=== PATIENT | male | born 1945 | race Caucasian/White ===

== ENCOUNTER 2018-06-10 14:33 | Inpatient (IN) | payer MEDICARE, OTHER ==
[2018-06-10] MEDS ORDERED: Nicotine Inhaler* 10 MG AMP INH PRN (14:54)
--- NOTE | 2018-06-10 15:06 | ED ---
Psychiatric Complaint - HPI Summary HPI Summary: Pt is a 72 y/o male who presents to the ED c/o SI. For the past 2-3 days hes felt extremely anxious and delirious, and has SI. Pt states he wants to , but doesnt want to kill himself. He has current thoughts of self-harm but without a specific plan. However, as per ex-, there was an incident involving a knife this morning. He also c/o insomnia, diaphoresis, and lack of energy. Pt was admitted to [facility] for similar sx on 05/04/18 for 1 week, and has since been seeing outpatient therapy and psychiatry. He takes Zoloft, Klonopin, and Remeron. Ex- is concerned because his Remeron dosage was recently increased from 15 mg to 30 mg. Pt states he is taking his medications as prescribed. PMHx anxiety, depression, panic disorder, inpatient treatment, and suicide attempt. 10 years ago he received electroconvulsive therapy which helped his symptoms. He denies any hx of thyroid issues. He is tremorous in the room. Pt denies any drug or alcohol use. - History Of Current Complaint Chief Complaint: [facility] Time Seen by Provider: 06/10/18 14:53 Hx Obtained From: Patient Onset/Duration: Gradual Onset, Lasting Days - 2-3, Worse Since Timing: Constant Character: Depressed, Anxious Aggravating Factor(s): Nothing Alleviating Factor(s): Nothing Associated Signs And Symptoms: Positive: Sleep Disturbance Related History: Positive For: Prior Psychiatric Issues Has Suicidal: Reports: Thoughts, Has Prior Attempt(s). Denies: With A Plan - Allergies/Home Medications Allergies/Adverse Reactions: Allergies Allergy/AdvReac Type Severity Reaction Status Date / Time penicillin V Allergy See Comment Verified 06/10/18 15:18 Home Medications: Home Medications Mirtazapine TAB* [Remeron TAB*] 30 mg PO BEDTIME PRN MDD 3015 06/10/18 [History Confirmed 06/10/18] Sertraline* [Zoloft*] 75 mg PO DAILY 06/10/18 [History Confirmed 06/10/18] PMH/Surg Hx/FS Hx/Imm Hx Endocrine/Hematology History: Denies: Hx Diabetes, Hx Thyroid Disease Cardiovascular History: Denies: Hx Hypercholesterolemia, Hx Hypertension, Hx Pacemaker/ICD, Hx Peripheral Vascular Disease Respiratory History: Denies: Hx Asthma, Hx Chronic Obstructive Pulmonary Disease (COPD) GI History: Reports: Hx Irritable Bowel Denies: Hx Ulcer Musculoskeletal History: Reports: Hx Back Problems - low back pain, Other Musculoskeletal History - Broken left ankle as a child, L fibula x 2 (7 and 17 yrs ago) Denies: Hx Arthritis, Hx Rheumatoid Arthritis, Hx Osteoporosis Sensory History: Denies: Hx Cataracts, Hx Contacts or Glasses, Hx Glaucoma, Hx Hearing Aid Opthamlomology History: Denies: Hx Cataracts, Hx Contacts or Glasses, Hx Glaucoma Neurological History: Denies: Hx Headaches, Hx Seizures, Hx Spinal Cord Injury, Hx Transient Ischemic Attacks (TIA) Psychiatric History: Reports: Hx Anxiety, Hx Inpatient Treatment - 10yrs ago, admitted [facility] then to [facility] for ECT, Hx Suicide Attempt - 10yrs ago, patient cut right wrist then aborted Denies: Hx Attention Deficit Hyperactivity Disorder, Hx Eating Disorder, Hx Depression, Hx Panic Disorder, Hx Post Traumatic Stress Disorder, Hx Community Mental Health Tx, Hx Schizophrenia, Hx Bipolar Disorder, Hx of Violent Episodes Against Others, Hx Substance Abuse, Other Psychiatric Issues/Disorders Infectious Disease History: No Infectious Disease History: Denies: Hx Hepatitis, Hx Human Immunodeficiency Virus (HIV), History Other Infectious Disease, Traveled Outside the [place] in Last 30 Days - Family History Known Family History: Negative: Cardiac Disease, Hypertension, Diabetes - Social History Alcohol Use: None Hx Substance Use: No Substance Use Type: Reports: None Hx Tobacco Use: No Smoking Status (MU): Never Smoked Tobacco Review of Systems Positive: Skin Diaphoresis, Other - Insomina, lack of energy. Negative: Fever, Chills Negative: Erythema Negative: Sore Throat Negative: Chest Pain Negative: Shortness Of Breath, Cough Negative: Abdominal Pain, Vomiting, Nausea Negative: dysuria, hematuria Negative: Myalgia, Edema Negative: Rash Neurological: Other - NEGATIVE: dizziness Positive: Anxious, Other - SI All Other Systems Reviewed And Are Negative: Yes Physical Exam - Summary Physical Exam Summary: Constitutional: Well-developed, Well-nourished, Alert. (-) Distressed Skin: Warm, Dry HENT: Normocephalic; Atraumatic Eyes: Conjunctiva normal Neck: Musculoskeletal ROM normal neck. (-) JVD, (-) Stridor, (-) Tracheal deviation Cardio: Rhythm regular, rate normal, Heart sounds normal; Intact distal pulses; The pedal pulses are 2+ and symmetric. Radial pulses are 2+ and symmetric. (-) Murmur Pulmonary/Chest wall: Effort normal. (-) Respiratory distress, (-) Wheezes, (-) Rales Abd: Soft, (-) epigastric tenderness, (-) Distension, (-) Guarding, (-) Rebound Musculoskeletal: (-) Edema Lymph: (-) Cervical adenopathy Neuro: Alert, Oriented x3 Psych: Appears anxious, tremorous Triage Information Reviewed: Yes Vital Signs On Initial Exam: Initial Vitals Temp Pulse Resp BP Pulse Ox 97.5 F 102 18 157/94 97 06/10/18 14:40 06/10/18 14:40 06/10/18 14:40 06/10/18 14:40 06/10/18 14:40 Vital Signs Reviewed: Yes Diagnostics - Vital Signs Vital Signs Temp Pulse Resp BP Pulse Ox 06/10/18 14:40 97.5 F 102 18 157/94 97 - Laboratory Result Diagrams: 06/10/18 15:07 06/10/18 15:07 Lab Statement: Any lab studies that have been ordered have been reviewed, and results considered in the medical decision making process. Re-Evaluation - Re-Evaluation First Eval Re-Evaluation Time: 16:16 Change: Unchanged Comment: Pt is medically cleared for a [facility]. Course/Dx - Course Course Of Treatment: Pt is a 72 y/o male who presents to the ED c/o SI and anxiety. PMHx anxiety, depression, panic disorder, inpatient treatment, and suicide attempt. Pt is significantly panicked. Suspect the pts WBC count is a stress response, no evidence of active infection. Pt is voluntarily admitted to Dr. Bhandari, with a final dx of anxiety. He is agreeable with this plan. - Differential Dx/Clinical Impression Provider Diagnosis: Anxiety - Physician Notifications Discussed Care Of Patient With: Spenser Bhandari Time Discussed With Above Provider: 19:50 Instructed by Provider To: Admit As Inpatient - Voluntary admit with dx of anxiety. Discharge - Sign-Out/Discharge Documenting (check all that apply): Patient Departure - Admit Patient Received Moderate/Deep Sedation with Procedure: No - Discharge Plan Condition: Stable Disposition: PSYCHIATRIC FACILITY-[facility] Referrals: No Primary Care Phys,NOPCP [Primary Care Provider] - - Attestation Statements Document Initiated by Scribe: Yes Documenting Scribe: Sheba Greenberg Provider For Whom Scribe is Documenting (Include Credential): Zion Maloney MD Scribe Attestation: Sheba Cazares, scribed for Zion Maloney MD on 06/10/18 at 2001. Status of Scribe Document: Ready
[2018-06-10 15:16] LABS: ABS Basophils 0.1 10^3/ul (0-0.2); ABS Eosinophils 0 10^3/ul (0-0.6); ABS Lymphocytes 0.8 10^3/ul (1.0-4.8); ABS Neutrophils 11.8 10^3/ul (1.5-7.7); ABS Nucleated RBC 0 10^3/ul; Eosinophil % 0.1 %; Hematocrit 42 % (42-52); Hemoglobin 14.2 g/dl (14.0-18.0); Lymphocyte % 5.7 %; Mean Corpuscular HGB Conc 34 g/dl (31-36); Mean Corpuscular Hemoglobin 30 pg (27-31); Mean Corpuscular Volume 87 fL (80-94); Mean Platelet Volume 6.6 fL (7.4-10.4); Nucleated Red Blood Cells % 0.1; Platelet Count 296 10^3/ul (150-450); Red Blood Count 4.81 10^6/ul (4.00-5.40); Red Cell Distribution Width 15 % (10.5-15); White Blood Count 13.7 10^3/ul (3.5-10.8)
[2018-06-10] MEDS ORDERED: Mouth Piece, Nicotine* 1 EACH CARTRIDGE INH PRN (15:23)
[2018-06-10 15:32] LABS: ALT 17 U/L (7-52); Albumin 4.5 g/dL (3.2-5.2); Albumin/Globulin Ratio 1.7 (1-3); Alkaline Phosphatase 51 U/L (34-104); BUN/Creatinine Ratio 22.8 (8-20); Blood Urea Nitrogen 21 mg/dL (6-24); CO2 Carbon Dioxide 27 mmol/L (22-32); Calcium 9.2 mg/dL (8.6-10.3); Chloride 101 mmol/L (101-111); EGFR African American 98.4 (>60); EGFR Non-African American 81.3 (>60); Globulin 2.6 g/dL (2-4); Glucose 109 mg/dL (70-100); Sodium 134 mmol/L (135-145); Total Protein 7.1 g/dL (6.4-8.9)
[2018-06-10 15:38] LABS: Urine Appearance Clear; Urine Bilirubin Negative (Negative); Urine Blood Negative (Negative); Urine Color Yellow; Urine Glucose Negative (Negative); Urine Ketones Trace (Negative); Urine Nitrite Negative (Negative); Urine Protein Negative (Negative); Urine Specific Gravity 1.018 (1.010-1.030); Urine Urobilinogen Negative (Negative)
[2018-06-10] MEDS ORDERED: LORazepam TAB(*) 1 MG PO ONE (15:39)
[2018-06-10 16:09] LABS: TSH (Thyroid Stimulating Horm) 1.68 mcIU/mL (0.34-5.60)
[2018-06-10 16:22] LABS: Barbiturates Urine Screen None Detected (None Detect); Benzodiazepine Urine Screen None Detected (None Detect); Urine Cannabinoids Screen None Detected (None Detect)
[2018-06-10 16:23] LABS: Alcohol < 10 mg/dL (<10); Salicylate < 2.50 mg/dL (<30)
[2018-06-10 16:47] LABS: Acetaminophen 1 mcg/mL
[2018-06-10 16:49] LABS: Free T4 0.89 ng/dL (0.61-1.12)
[2018-06-10 17:02] LABS: AST 28 U/L (13-39); Anion Gap 6 mmol/L (2-11)
[2018-06-10] MEDS ORDERED: Acetaminophen TAB* 325 MG PO PRN (21:50)
[2018-06-10] MEDS: Mirtazapine TAB* 15 MG PO SCH (21:55)
[2018-06-11] MEDS: Vitamin THERAPEUTIC TAB PO SCH (08:20)
[2018-06-11] MEDS: clonazePAM TAB(*) 0.5 MG PO PRN (08:39)
[2018-06-11] MEDS ORDERED: OLANzapine TAB* 2.5 MG PO ONE (08:58)
[2018-06-11] MEDS ORDERED: Sertraline* 50 MG TAB PO SCH (09:00)
--- NOTE | 2018-06-11 10:53 | HP ---
H&P (Free Text) History and Physical: CC "The anxiety got to be too much and I felt like ending my life HPI Justification for admission: For immediate safety, the patient is a danger to himself. 72 year old white male with past history of Generalized anxiety and and panic disorder presented to the Emergency room. He reported being overtook by anxiety and had a knife in his hands thinking of cutting his wrist. He threw the knife and called a friend for help. He decribes his anxiety as being trapped. He feels frustrated when he is unable to use his coping strategies during times of panic. When he wakes up his objective is not to think about suicide. He has been walking as a way to calm down. He describes that anxiety prevents the things that he likes to do. He recently had a suicidal plan to cut his wrist. He denied access to firearms . He reported losing weight approximately 10 pounds from a poor appetite. He denied homicidal ideation intent or plan. He denied recent acts of violence. He denied auditory and or visual hallucinations. He reported having poor sleep and gets up early to walk as a way to cope with the anxiety. MDD He reported in the past having feelings of low self-worth , feeling empty inside , with feelings of hopelessness .He reported unintentional weight loss and lack of appetite . He reported that he has trouble staying asleep and has not slept for the last 2 days. Currently he reports periods of low levels of energy or difficulty initiating and completing tasks. He reports that walking has always brought him live and he has not done that lately. Anxiety He reported having panic attacks where he feels trapped and his blood pressure increases and he loses control. He has fear in anticipation of having panic attacks. He denied fear of crowds, or phobias. He denied worrying most of the day. PTSD He denied flashbacks or recurrent nightmares and avoidance from a traumatic experience Bipolar He denied feeling irritable most of the time while having an persistent abundance of energy most of the day without the use of substances. He denied having the decrease need for sleep due to feeling an abundance of energy. Psychosis He denied hearing things that other people do not hear or seeing things other people do not see. He denied feeling that the TV is making references. He said that he is trustful of others and feels safe on the unit. The patient denied auditory and/ or visual hallucinations. PAST PSYCHIATRIC HISTORY: History of Major Depressive disorder, Panic disorder, JUSTYN. Prior Psychiatric Admissions: Last admission April 2018 and another 10 years at [facility] for cutting wrist History of past suicide/homicide attempts : 1 past suicide attempt 10 years ago. He denied past homicidal and or violent incidents. Outpatient follow-up: Denied current follow up care. Medications: Remeron 30mg, Zoloft 75mg daily and klonopin 0.5mg BID ECT 10 years ago at [place] with positive clinical response and remission for 10 years FAMILY HISTORY: - Suicide: Denied family history of suicide. - Mental illness: Denied family history of mental illness - Substance abuse: Father abused alcohol. SUBSTANCE ABUSE HISTORY: He denied using alcohol, heroin , cocaine, cannabis use or other illicit drugs. He denied prescription drug abuse. He denied nicotine use. SOCIAL HISTORY: He is a 72 year old white male and has 2 children. He lives with ex in [place]. He grew up in [facility]. 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 He completed college education. PAST MEDICAL HISTORY: Denied having current or prior medical conditions Allergies: Penicillin Physical Exam: Please see ED note Mental Status Exam on Admission Appearance: 72 year old male appears older than stated age. Thin with cook hair. Psychomotor activity: No Psychomotor agitation Eye contact: Fair Posture: Upright Attitude/behavior: cooperative Speech: low volume Mood: "anxious " Affect: Constricted Thought process: linear and goal directed Thought content: goal directed Perceptions: He did not appear to be responding to internal stimuli. No visual hallucinations and/ or auditory hallucinations. Suicidal/homicidal targets: Recent suicidal ideation with plan. Denied homicidal ideation, intent or plans. Sensorium/orientation: Awake and alert. Oriented to self, location, and time Insight/judgment: Fair insight and judgment. Diagnosis on admission : Major depressive disorder, severe. Panic Disorder. Generalized Anxiety Disorder. Plan #Admit to [facility] on voluntary admission. Q15 minute observation. Start regular diet. Encourage participation in activities on the milieu. # Justification for Admission: For immediate safety as it relates to being a danger to himself. # Voluntary admission. The patient requires inpatient admission at this time to assure safety, receive treatment and work toward stabilization. # Klonopin 0.5mg BID PRN #Start Effexor 37.5mg daily with plan to increase # Continue remeron 30mg po qhs #D/C zoloft trial > 6 weeks without adequate response. #ECT Referral Thursday #Monitor for rapid fluctuation in mental status due to patients age and current medications. # Currently no signs of delirium. #Patient evaluated in ED and was determined by the emergency room Physician to be medically stable for admission to the [facility]. #Goals to include decrease/ eradicate anxiety and suicidal ideation. #Patient advised to breath through straw during times of panic. #The risks, benefits, and alternative treatment options were discussed as well as of the risks of refusing treatment. Risks of behavioral changes, Serotonin syndrome, metabolic risks and NMS were among some of the risks discussed. After this discussion and an acknowledgement of his understanding he made the decision for the current type of treatment. Sodium 134 mmol/L (135-145) L 06/10/18 15:07 Potassium 4.0 mmol/L (3.5-5.0) 06/10/18 15:07 BUN 21 mg/dL (6-24) 06/10/18 15:07 Creatinine 0.92 mg/dL (0.67-1.17) 06/10/18 15:07 Calcium 9.2 mg/dL (8.6-10.3) 06/10/18 15:07 AST 28 U/L (13-39) 06/10/18 15:07 ALT 17 U/L (7-52) 06/10/18 15:07 Vital Signs 06/10/18 06/10/18 06/10/18 14:40 16:00 17:44 Temperature 97.5 F 99.1 F Pulse Rate 102 102 Respiratory 18 20 16 Rate Blood Pressure 157/94 115/67 (mmHg) O2 Sat by Pulse 97 98 Oximetry 06/10/18 06/10/18 06/10/18 20:36 20:52 22:15 Temperature 98.8 F 98.8 F Pulse Rate 88 88 Respiratory 14 14 16 Rate Blood Pressure 103/66 103/66 (mmHg) O2 Sat by Pulse 100 100 Oximetry 06/11/18 06/11/18 06/11/18 07:31 08:39 09:54 Temperature 98.8 F Pulse Rate 73 Respiratory 16 16 16 Rate Blood Pressure 156/94 (mmHg) O2 Sat by Pulse 100 Oximetry
[2018-06-11] MEDS: Mirtazapine TAB* 15 MG PO SCH (20:16)
[2018-06-12] MEDS: clonazePAM TAB(*) 0.5 MG PO PRN ×2 (03:15→14:44)
[2018-06-12] MEDS ORDERED: Nicotine PATCH 21 MG/24 HR* PATCH TRANSDERM SCH (08:00)
[2018-06-12] MEDS: Venlafaxine EXT RELEASE CAP* 37.5 MG PO SCH (08:32)
[2018-06-12] MEDS: Vitamin THERAPEUTIC TAB PO SCH (08:32)
--- NOTE | 2018-06-12 16:12 | PN ---
Subjective - Subjective Date of Service: 06/12/18 Subjective: "I only slept 2 hours last night because of panic attacks, I still feel pretty shaky!" Noah endorses SI when he feels overpowered by his anxiety. He contracts to go to staff if he feels unsafe. He denies side effects from his prescribed meds. He has been using prn Clonazepam with good effects. Per staff, he has been seclusive to his room. Objective - Appearance Appearance: Healthy Appearing Dysmorphic Features: No Hygiene: Normal Grooming: Well Kept - Behavior Psychomotor Activities: Normal Exhibits Abnormal Movement: No - Attitude and Relatedness Attitude and Relatedness: Cooperative Eye Contact: Good - Speech Quality: Unpressured Latencies: Normal Quantity: Appropriate - Mood Patient's Decription of Mood: "Anxious" - Affect Observed Affect: Constricted Affect Consistent with: Dysphoria - Thought Process Patient's Thought Process: Coherent, Goal Directed Thought Content: No Passive Wish, No Suicidal Planning, No Homicidal Ideation, No Paranoid Ideation - Sensorium Experiencing Hallucinations: No, Sensorium is Clear - Level of Consciousness Level of Consciousness: Alert Orientation: Yes Intact - Impulse Control Impulse Control: Intact - Insight and Judgement Insight and Judgement: Fair - Medication Management Medication Management Adherence: Yes Assessment - Assessment Merits Inpatient Hospitalization: For Ongoing Evaluation Clinical Impression: Continues to endorse high level of distress. Plan - Plan Treatment Plan: Name: NOAH ALVAREZ Birthdate: 1945 [id number] Continued Medication Management: Continue Outpt Medication Medications: Current Medications Acetaminophen (Tylenol Tab*) 650 mg PO Q4H PRN PRN Reason: PAIN or TEMP > 101 F Al Hydrox/Mg Hydrox/Simethicone (Maalox Plus*) 30 ml PO Q4H PRN PRN Reason: INDIGESTION Clonazepam (Klonopin Tab(*)) 0.5 mg PO BID PRN PRN Reason: ANXIETY Last Admin: 06/12/18 14:44 Dose: 0.5 mg Mirtazapine (Remeron Tab*) 30 mg PO BEDTIME [facility] Last Admin: 06/11/18 20:16 Dose: 30 mg Multivitamins (Theragran Tab*) 1 tab PO DAILY [facility] Last Admin: 06/12/18 08:32 Dose: 1 tab Venlafaxine HCl (Effexor Xr Cap*) 37.5 mg PO DAILY [facility] Last Admin: 06/12/18 08:32 Dose: 37.5 mg - Discharge Plan Discharge Plan: Outpatient Follow Up Outpatient Program: [facility]
[2018-06-12] MEDS: Mirtazapine TAB* 15 MG PO SCH (20:31)
[2018-06-13] MEDS: clonazePAM TAB(*) 0.5 MG PO PRN (05:31)
[2018-06-13] MEDS: Vitamin THERAPEUTIC TAB PO SCH (07:40)
[2018-06-13] MEDS: Venlafaxine EXT RELEASE CAP* 37.5 MG PO SCH (07:40)
[2018-06-13] MEDS ORDERED: LORazepam TAB(*) 1 MG PO ONE (10:25)
[2018-06-13] MEDS: Mirtazapine TAB* 15 MG PO SCH (20:02)
[2018-06-14] MEDS: Venlafaxine EXT RELEASE CAP* 37.5 MG PO SCH (07:43)
[2018-06-14] MEDS: Vitamin THERAPEUTIC TAB PO SCH (07:43)
[2018-06-14 07:59] LABS: HDL Cholesterol 53.8 mg/dL
[2018-06-14] MEDS: clonazePAM TAB(*) 0.5 MG PO PRN (08:38)
--- NOTE | 2018-06-14 11:07 | PN ---
Subjective - Subjective Date of Service: 06/14/18 Service Type: 74888 Hosp care 35 min high complexity Subjective: Nursing Report: Patient was visible on unit, no chemical restraints or PRNs. Slept overnight without incident. CC: "I am anxious Patient was seen and evaluated in the common room. The patient continues to report severe anxiety. He reported relief with klonopin. He paces around the unit to cope with anxiety. He said that he continues to have difficulty with getting the thoughts of suicide out of his head. He doesnt have a plan for suicide. He reported having an adequate appetite and sleep. Per nursing no behavioral issues or overnight events reported. Patient reported that he is tolerating medications without side effects. He denied auditory and or visual hallucinations. Objective - Appearance Appearance: Thin Framed Dysmorphic Features: No Hygiene: Normal Grooming: Fairly Well Kept - Behavior Psychomotor Activities: Abnormal-Increased Exhibits Abnormal Movement: No - Attitude and Relatedness Attitude and Relatedness: Appropriate Eye Contact: Fair - Speech Quality: Unpressured Latencies: Short Quantity: Appropriate - Mood Patient's Decription of Mood: "Anxious" - Affect Observed Affect: Tense Affect Consistent with: Dysphoria - Thought Process Patient's Thought Process: Goal Directed Thought Content: Yes Passive Wish, No Suicidal Planning, No Homicidal Ideation, No Paranoid Ideation - Sensorium Experiencing Hallucinations: No, Sensorium is Clear Type of Hallucinations: Visual: No, Auditory: No, Command: No - Level of Consciousness Level of Consciousness: Alert Orientation: Yes Intact, Yes Orientated to Time, Yes Orientated to Place, Yes Orientated to Person - Impulse Control Impulse Control: Poor - Insight and Judgement Insight and Judgement: Fair - Group Participation Particating in Group Activities: Yes - Medication Management Medication Management Adherence: Yes Assessment - Assessment Merits Inpatient Hospitalization: For Immediate Safety Clinical Impression: 72 year old white male admitted to the [facility] for suicidal ideation continues to show severe anxiety. Plan - Plan Treatment Plan: Name: MILLICENT ALVAREZ Birthdate: 1945 [id number] # Voluntary admission. The patient requires inpatient admission at this time to assure safety, receive treatment and work toward stabilization. # Klonopin 0.5mg BID PRN #Increase Effexor 75mg daily # Continue remeron 30mg po qhs # Start propranolol 10mg BID. #ECT Referral #Goals to include decrease anxiety and suicidal ideation. [facility] Vital Signs Temp Pulse Resp BP Pulse Ox 98.9 F 78 16 137/86 99 06/14/18 07:43 06/14/18 11:15 06/14/18 10:42 06/14/18 11:15 06/14/18 11:15 Sodium 134 mmol/L (135-145) L 06/10/18 15:07 Potassium 4.0 mmol/L (3.5-5.0) 06/10/18 15:07 BUN 21 mg/dL (6-24) 06/10/18 15:07 Creatinine 0.92 mg/dL (0.67-1.17) 06/10/18 15:07 Hemoglobin A1c 5.7 % (4.0-5.6) H 06/14/18 07:14 Calcium 9.2 mg/dL (8.6-10.3) 06/10/18 15:07 AST 28 U/L (13-39) 06/10/18 15:07 ALT 17 U/L (7-52) 06/10/18 15:07 Triglycerides 135 mg/dL 06/14/18 07:14 Cholesterol 190 mg/dL 06/14/18 07:14 LDL Cholesterol 109 mg/dL 06/14/18 07:14 Continued Medication Management: Start Medication Medications: Current Medications Acetaminophen (Tylenol Tab*) 650 mg PO Q4H PRN PRN Reason: PAIN or TEMP > 101 F Al Hydrox/Mg Hydrox/Simethicone (Maalox Plus*) 30 ml PO Q4H PRN PRN Reason: INDIGESTION Clonazepam (Klonopin Tab(*)) 0.5 mg PO BID PRN PRN Reason: ANXIETY Last Admin: 06/14/18 08:38 Dose: 0.5 mg Mirtazapine (Remeron Tab*) 30 mg PO BEDTIME [facility] Last Admin: 06/13/18 20:02 Dose: 30 mg Multivitamins (Theragran Tab*) 1 tab PO DAILY [facility] Last Admin: 06/14/18 07:43 Dose: 1 tab Propranolol HCl (Inderal Tab*) 10 mg PO BID [facility] Venlafaxine HCl (Effexor Xr Cap*) 75 mg PO DAILY [facility] - Discharge Plan Discharge Plan: Inpatient Hospitalization
[2018-06-14] MEDS: Propranolol TAB* 10 MG PO SCH ×2 (11:15→20:09)
--- NOTE | 2018-06-14 13:15 | PN ---
[facility]: Group Therapy Note - Service Type Service Type: 91678 Group Psychotherapy - Cognitive Behavioral Group Therapy ( CBT):Patient was attentive and participatory in CBT programming this morning, and remained in good behavioral control. Patient expressed positive insights regarding relevant treatment interventions and goals.
[2018-06-14] MEDS: Mirtazapine TAB* 15 MG PO SCH (20:09)
[2018-06-15] MEDS: Al Hydrox/Mg Hydrox/Simet LIQ* 30 ML UDC PO PRN ×2 (00:26→13:36)
[2018-06-15] MEDS ORDERED: Loperamide CAP* 2 MG PO PRN ×2 (00:32→08:00)
[2018-06-15] MEDS: clonazePAM TAB(*) 0.5 MG PO PRN ×3 (01:51→15:13)
[2018-06-15] MEDS: Vitamin THERAPEUTIC TAB PO SCH (08:28)
[2018-06-15] MEDS: Propranolol TAB* 10 MG PO SCH (08:28)
[2018-06-15] MEDS: Ondansetron TAB* 4 MG PO ONE ×2 (08:29→10:04)
[2018-06-15] MEDS ORDERED: Venlafaxine EXT RELEASE CAP* 75 MG PO SCH (09:00)
[2018-06-15] MEDS ORDERED: Bismuth Subsalicylate* 524 MG/30 ML BTL PO ONE (12:00)
--- NOTE | 2018-06-15 13:30 | DS ---
Subjective - Subjective Service Types: [address] [facility] Day Mgmt complex over 30 min Discharge Date: 06/15/18 Subjective: Nursing Report: Patient was visible on unit, no chemical restraints or behavioral concerns. Poor sleep overnight. CC: "My stomach hurts Patient was seen and evaluated in the common room. He reported throwing up last night and did not get good sleep. He is nervous for the transfer to [facility]. He ate lunch and feels better this afternoon. He is hopeful that ECT will improve his anxiety. He denied suicidal ideation, intent or plan. He denied homicidal ideation intent or plan. He denied auditory and or visual hallucinations. CC "The anxiety got to be too much and I felt like ending my life HPI Justification for admission: For immediate safety, the patient is a danger to himself. 72 year old white male with past history of Generalized anxiety and and panic disorder presented to the Emergency room. He reported being overtook by anxiety and had a knife in his hands thinking of cutting his wrist. He threw the knife and called a friend for help. He decribes his anxiety as being trapped. He feels frustrated when he is unable to use his coping strategies during times of panic. When he wakes up his objective is not to think about suicide. He has been walking as a way to calm down. He describes that anxiety prevents the things that he likes to do. He recently had a suicidal plan to cut his wrist. He denied access to firearms . He reported losing weight approximately 10 pounds from a poor appetite. He denied homicidal ideation intent or plan. He denied recent acts of violence. He denied auditory and or visual hallucinations. He reported having poor sleep and gets up early to walk as a way to cope with the anxiety. MDD He reported in the past having feelings of low self-worth , feeling empty inside , with feelings of hopelessness .He reported unintentional weight loss and lack of appetite . He reported that he has trouble staying asleep and has not slept for the last 2 days. Currently he reports periods of low levels of energy or difficulty initiating and completing tasks. He reports that walking has always brought him live and he has not done that lately. Anxiety He reported having panic attacks where he feels trapped and his blood pressure increases and he loses control. He has fear in anticipation of having panic attacks. He denied fear of crowds, or phobias. He denied worrying most of the day. PTSD He denied flashbacks or recurrent nightmares and avoidance from a traumatic experience Bipolar He denied feeling irritable most of the time while having an persistent abundance of energy most of the day without the use of substances. He denied having the decrease need for sleep due to feeling an abundance of energy. Psychosis He denied hearing things that other people do not hear or seeing things other people do not see. He denied feeling that the TV is making references. He said that he is trustful of others and feels safe on the unit. The patient denied auditory and/ or visual hallucinations. PAST PSYCHIATRIC HISTORY: History of Major Depressive disorder, Panic disorder, JUSTYN. Prior Psychiatric Admissions: Last admission April 2018 and another 10 years at [facility] for cutting wrist History of past suicide/homicide attempts : 1 past suicide attempt 10 years ago. He denied past homicidal and or violent incidents. Outpatient follow-up: Denied current follow up care. Medications: Remeron 30mg, Zoloft 75mg daily and klonopin 0.5mg BID ECT 10 years ago at [place] with positive clinical response and remission for 10 years FAMILY HISTORY: - Suicide: Denied family history of suicide. - Mental illness: Denied family history of mental illness - Substance abuse: Father abused alcohol. SUBSTANCE ABUSE HISTORY: He denied using alcohol, heroin , cocaine, cannabis use or other illicit drugs. He denied prescription drug abuse. He denied nicotine use. SOCIAL HISTORY: He is a 72 year old white male and has 2 children. He lives with ex in [place]. He grew up in [facility]. 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 He completed college education. PAST MEDICAL HISTORY: Denied having current or prior medical conditions Allergies: Penicillin Physical Exam: Please see ED note Mental Status Exam on Admission Appearance: 72 year old male appears older than stated age. Thin with cook hair. Psychomotor activity: No Psychomotor agitation Eye contact: Fair Posture: Upright Attitude/behavior: cooperative Speech: low volume Mood: "anxious " Affect: Constricted Thought process: linear and goal directed Thought content: goal directed Perceptions: He did not appear to be responding to internal stimuli. No visual hallucinations and/ or auditory hallucinations. Suicidal/homicidal targets: Recent suicidal ideation with plan. Denied homicidal ideation, intent or plans. Sensorium/orientation: Awake and alert. Oriented to self, location, and time Insight/judgment: Fair insight and judgment. Diagnosis on admission : Major depressive disorder, severe. Panic Disorder. Generalized Anxiety Disorder. Diagnosis on Discharge: Major depressive disorder, severe. Panic Disorder. Generalized Anxiety Disorder. Condition at the time of discharge: At the time of discharge patient was anxious about being transferred but had insight to know that in the long run it will be better because of his positive response to ECT in the past. The patient was not a danger to self or others. The patient denied suicidal ideation , intent or plans. The patient denied homicidal targets, ideation, intents or plans. The patient gained insight into mental illness, triggers, and treatment and continued to have severe anxiety. The patient took medication as prescribed. The patient will be transported by ambulance to [facility] for ECT. Objective - Appearance Appearance: Thin Framed Dysmorphic Features: No Hygiene: Normal Grooming: Fairly Well Kept - Behavior Psychomotor Activities: Abnormal-Increased Exhibits Abnormal Movement: No - Attitude and Relatedness Attitude and Relatedness: Cooperative Eye Contact: Fair - Speech Quality: Unpressured Latencies: Normal Quantity: Appropriate - Mood Patient's Decription of Mood: "Anxious" - Affect Observed Affect: Fair Affect Consistent with: Dysphoria - Thought Process Patient's Thought Process: Goal Directed Thought Content: No Passive Wish, No Suicidal Planning, No Homicidal Ideation, No Paranoid Ideation - Sensorium Experiencing Hallucinations: No, Sensorium is Clear Type of Hallucinations: Visual: No, Auditory: No, Command: No - Level of Consciousness Level of Consciousness: Alert Orientation: Yes Intact, Yes Orientated to Time, Yes Orientated to Place, Yes Orientated to Person - Impulse Control Impulse Control: Tenuous - Insight and Judgement Insight and Judgement: Fair - Group Participation Particating in Group Activities: Yes - Medication Management Medication Management Adherence: Yes Treatment Course & Assessment Clinical Course & Impression: 72 year old white male admitted to the [facility] for suicidal ideation continues to show severe anxiety. Hospital course part A: 72 year old white male with history of treatment resistant anxiety and suicidal ideation plans to receive ECT. Hospital course part B: Labs ordered included CBC, CMP, UDS, TSH, HBA1c, TSH, Toxicology screen, Urine analysis, and lipid profile. Labs were reviewed and did not require the need for further evaluation. Vital signs were monitored during the course of admission. EKG ordered and reviewed and no abnormal findings were present The patient was admitted to the adult behavioral unit and placed on 15 minute check for safety. The patient was never a behavioral concern during the time of admission. Despite intervention of medication and group therapy and services he remained anxious. Given his positive clinical response to ECT in the past resulting in remission for 10 years, a referral was made and he will be transferred to [facility]. The risks, benefits, and alternative treatment options were discussed as well as of the risks of refusing treatment. Patient continues to have severe anxiety and a care plan in the patients best interest was put in place. He currently has a absence of depressed mood, delusions, perceptual disturbances and or suicidal ideation. The patient was advised of the 24 hour / 7 days a week availability of the emergency room and to call 911 in the event of becoming suicidal and/ or homicidal and for all other emergencies. The patient was informed of the contact information for [facility], Suicide Prevention and Crisis Services, National Suicide Prevention Lifeline, [facility], Alcoholics Anonymous, and [facility]. Zoloft 75mg daily was discontinued and effexor 37.5mg daily was started and this was increased to 75mg daily. He started to have loose stool and this was discontinued. Zoloft 75mg po daily was resumed given his previous tolerance. Propranolol 10mg BID was given for anxiety He was continued on remeron 30mg at night, and klonopin 0.5mg BID PRN. His ex- whom is involved in his care whom he lives with was notified of the plan of transferring him to [facility]. Consults included to hospitalist team to evaluate him after GI upset and one time vomiting. He was tolerating solid food in the afternoon. Zofran 4mg, loperamide 4mg was given along with bismuth. One time zyprexa 2.5mg PO was given which had some mild improvement of anxiety. Doctor to doctor took place with Dr. Ji before discharge and he received history of his treatment record. Patient continues to be at risk for suicide until proper treatment is provided and anxiety is remitted. Patient is currently future orientated. Patient engaged in treatment and compliant with medication and has motivation to get better. Merits Inpatient Hospitalization: Yes Clear for Discharge: Other - Being transferred to [facility] Discharge Planning - Discharge Planning Discharge Plan: Inpatient Hospitalization Outpatient Program: [facility] Recommendations for Continuing Care: Medication Management, Specialty Followup Medications: Current Medications Acetaminophen (Tylenol Tab*) 650 mg PO Q4H PRN PRN Reason: PAIN or TEMP > 101 F Al Hydrox/Mg Hydrox/Simethicone (Maalox Plus*) 30 ml PO Q4H PRN PRN Reason: INDIGESTION Last Admin: 06/15/18 00:26 Dose: 30 ml Clonazepam (Klonopin Tab(*)) 0.5 mg PO BID PRN PRN Reason: ANXIETY Last Admin: 06/15/18 07:51 Dose: 0.5 mg Loperamide HCl (Imodium Cap*) 4 mg PO ONCE PRN PRN Reason: DIARRHEA Stop: 06/16/18 00:31 Last Admin: 06/15/18 07:51 Dose: 4 mg Loperamide HCl (Imodium Cap*) 2 mg PO .SEE DIRECTIONS PRN PRN Reason: DIARRHEA Mirtazapine (Remeron Tab*) 30 mg PO BEDTIME [facility] Last Admin: 06/14/18 20:09 Dose: 30 mg Multivitamins (Theragran Tab*) 1 tab PO DAILY [facility] Last Admin: 06/15/18 08:28 Dose: 1 tab Propranolol HCl (Inderal Tab*) 10 mg PO BID [facility] Last Admin: 06/15/18 08:28 Dose: 10 mg Sertraline HCl (Zoloft*) 75 mg PO DAILY [facility] Discharge Planning: Prescriptions provided for discharge [] Yes [x] No Transfer to [facility] Follow up care details as per social work arrangements. Patient response to discharge plan: [] eager for discharge [x] agreeable with discharge plan [] ambivalent about discharge [] disagrees with discharge today
--- NOTE | 2018-06-15 14:27 | PN ---
Subjective Interval History: Pt seen for consult. Complaining of episode of loose but not watery stool last night followed by abdominal bloating and frequent passing of gas. Has slight leukocytosis and Tmax 99.4 today. Benign abdominal exam and feeling somewhat improved. Hx of anxiety and wants to make sure he is safe to go to [facility] for ECT. Gotten imodium. DDx included viral gastroenteritis vs medication side effect (he states he was switched from zoloft to Effexor last night but I don't see this documented in the MAR. Regardless he is medically stable for discharge/ transfer. Full consult to follow. . Objective Active Medications: Acetaminophen (Tylenol Tab*) 650 mg PO Q4H PRN PRN Reason: PAIN or TEMP > 101 F Al Hydrox/Mg Hydrox/Simethicone (Maalox Plus*) 30 ml PO Q4H PRN PRN Reason: INDIGESTION Last Admin: 06/15/18 13:36 Dose: 30 ml Clonazepam (Klonopin Tab(*)) 0.5 mg PO BID PRN PRN Reason: ANXIETY Last Admin: 06/15/18 07:51 Dose: 0.5 mg Loperamide HCl (Imodium Cap*) 4 mg PO ONCE PRN PRN Reason: DIARRHEA Stop: 06/16/18 00:31 Last Admin: 06/15/18 07:51 Dose: 4 mg Loperamide HCl (Imodium Cap*) 2 mg PO .SEE DIRECTIONS PRN PRN Reason: DIARRHEA Mirtazapine (Remeron Tab*) 30 mg PO BEDTIME [facility] Last Admin: 06/14/18 20:09 Dose: 30 mg Multivitamins (Theragran Tab*) 1 tab PO DAILY [facility] Last Admin: 06/15/18 08:28 Dose: 1 tab Propranolol HCl (Inderal Tab*) 10 mg PO BID [facility] Last Admin: 06/15/18 08:28 Dose: 10 mg Sertraline HCl (Zoloft*) 75 mg PO DAILY [facility] Vital Signs - 8 hr 06/15/18 06/15/18 06/15/18 07:51 07:52 10:22 Temperature 98.8 F 99.4 F Pulse Rate 99 96 Respiratory 18 16 14 Rate Blood Pressure 152/80 123/80 (mmHg) O2 Sat by Pulse 99 100 Oximetry 06/15/18 14:01 Temperature Pulse Rate Respiratory 16 Rate Blood Pressure (mmHg) O2 Sat by Pulse Oximetry Result Diagrams: 06/10/18 15:07 06/10/18 15:07 Assess/Plan/Problems-Billing Assessment:
[2018-06-15 15:24] VITALS: BP 142/90
--- NOTE | 2018-06-15 20:24 | CONS ---
CONSULTATION REPORT: DATE OF CONSULT: 06/15/18. PRIMARY SERVICE: Psychiatry (Dr. Arsenio Woodson). CONSULTING PHYSICIAN: Internal Medicine (Dr. Chauncey Pond). REASON FOR CONSULT: Diarrhea, abdominal pain. HISTORY OF PRESENT ILLNESS: Noah Stanley is a 72-year-old male with past medical history of generalized anxiety and panic disorders, with recent suicidal ideation, admitted on 06/10/18 after feeling like he might hurt himself with a knife, though he did ask for help. He has been on Zoloft and Remeron as an outpatient along with Klonopin. He has a recent psychiatric admission in April 2018. Medicine service was consulted as the patient last night had an episode of loose but not watery bowel movements and abdominal cramping. He then had several episodes where he had a bloating sensation and passing gas frequently throughout the night, significant enough that he was not able to adequately sleep. This made him anxious. He, of note, had been started on Effexor 37.5 mg on the 3 prior days and the Zoloft had been stopped. His other additional workup had included mild leukocytosis of 13.7 and a T- max of 99.4 on this morning of evaluation. He has been given Imodium, Zofran, and his Effexor stopped, changed back to Zoloft in case this was a medication side effect. He is planned to be transferred to [place] for ECT therapy later on this afternoon and is anxious that he will not get enough sleep or be able to be safe for transfer. PAST MEDICAL HISTORY: Generalized anxiety and panic disorder, suicidal ideation. MEDICATIONS: Included: 1. Remeron 30 mg at bedtime. 2. Klonopin 0.5 mg p.o. b.i.d. p.r.n. 3. Initially Zoloft 75 mg daily, now recently Effexor 37.5 mg for the last 3 days. ALLERGIES: He has a PENICILLIN allergy. FAMILY HISTORY: Father had alcohol abuse. SOCIAL HISTORY: white male, 2 children. Retired recently. REVIEW OF SYSTEMS: Complete 14-point review of systems is negative except as per HPI. PHYSICAL EXAM: General Appearance: No acute distress. Vital Signs: Temperature 99.4, pulse rate 96, respiratory rate 14, satting 100% on room air, blood pressure 123/80. HEENT: Normocephalic, atraumatic. Pupils are equal, round, and reactive to light. Extraocular motions are intact. No scleral icterus. Lungs: Clear to auscultation bilaterally with no wheezing, rales, or rhonchi. Cardiovascular: Regular rate and rhythm, no murmurs, rubs or gallops. Abdomen: Soft, nontender, nondistended. Extremities: Warm, well perfused, no peripheral edema. Skin: No lesions, no rashes. He is able to ambulate. Speech is not pressured. DIAGNOSTIC STUDIES/LAB DATA: On admission, 06/10/18, white count 13.7, hemoglobin 14.2, hematocrit 42, platelets 296,000. Sodium 134, potassium 4.0, chloride 101, carbon dioxide 27, BUN 21, creatinine 0.92, glucose 109, A1c 5.7, AST 28, ALT 17, alkaline phosphatase 51, albumin 4.5, LDL 109, HDL 54, TSH 1.68 , free T4 of 0.89. Urinalysis with trace ketones. Toxicology screen negative except for tylenol level of 1. ASSESSMENT AND PLAN: Noah Stanley is a 72-year-old male with past history of anxiety disorder, who presented to the [facility] for suicidal ideation, complaining of episode of loose stool, abdominal cramping and gas. His symptoms of stomach discomfort have been improved with Imodium in the setting of his medication change from Zoloft to Effexor. The differential includes viral gastroenteritis versus medication side effect. His exam is benign. He is hemodynamically stable and feeling improved with the addition of Imodium and bowel regimen. Has not had any other episodes of diarrhea. I think he is stable for discharge to [place]. Could consider changing to an alternative SSRI given the acute nature of the side effects, occurring a few days after initiation of Effexor. Thank you for this interesting consult. [id number] #: [id number] RAEGAN
[2018-06-16] MEDS ORDERED: Sertraline* 25 MG TAB PO SCH (09:00)
== END 2018-06-15 16:30 | disposition short-term general hospital (02) | DRG 751 ==
LOC: ED 14:33 → BSU 20:58
PROVIDERS: ADMIT Psychiatry & Neurology Psychiatry; ATTEND Psychiatry & Neurology Psychiatry
DX: F33.2 Major depressive disorder, recurrent severe without psychotic features (principal); R45.851 Suicidal ideations; F41.1 Generalized anxiety disorder; F41.0 Panic disorder [episodic paroxysmal anxiety]; R19.7 Diarrhea, unspecified; R10.9 Unspecified abdominal pain; Z79.899 Other long term (current) drug therapy; Z81.1 Family history of alcohol abuse and dependence; Z88.0 Allergy status to penicillin
CPT/HCPCS: 36415; 80053; 80061; 80307; 80320; 80329; 81003; 83036; 84439; 84443; 85025; 90853; 93005; 99222; 99231; 99233; 99238; 99284; A9270-GY; G0480

== ENCOUNTER 2018-10-22 09:41 | Emergency (ER) | payer MEDICARE, OTHER ==
[2018-10-22 09:51] VITALS: BP 128/85
--- NOTE | 2018-10-22 11:02 | UC ---
Skin Complaint HPI - HPI Summary HPI Summary: Mr. Stanley noticed a rash on his right upper chest about a week ago. He had 4 days of high fevers and now has rashes on his bilateral legs. - History of Current Complaint Chief Complaint: UCGeneralIllness Time Seen by Provider: 10/22/18 10:33 Stated Complaint: FEVER RASH Hx Obtained From: Patient Onset/Duration: Gradual Onset Skin Exposure Onset/Duration: Days Ago Onset Severity: Moderate Current Severity: Mild Pain Intensity: 3 Location: Diffuse Aggravating Factor(s): Nothing Alleviating Factor(s): Nothing Associated Signs & Symptoms: Positive: Fever - Allergy/Home Medications Allergies/Adverse Reactions: Allergies Allergy/AdvReac Type Severity Reaction Status Date / Time penicillin V Allergy See Comment Verified 10/22/18 09:51 PMH/Surg Hx/FS Hx/Imm Hx Previously Healthy: Yes Psychological History: Anxiety - Surgical History Surgical History: None - Family History Known Family History: Negative: Cardiac Disease, Hypertension, Diabetes - Social History Alcohol Use: None Substance Use Type: None Smoking Status (MU): Never Smoked Tobacco - Immunization History Most Recent Influenza Vaccination: N/A Most Recent Pneumonia Vaccination: N/A Review of Systems All Other Systems Reviewed And Are Negative: Yes Constitutional: Positive: Fever Skin: Positive: Rash Physical Exam - Summary Physical Exam Summary: Is nontoxic in appearance with stable vital signs and afebrile. Triage Information Reviewed: Yes Appearance: Well-Appearing Vital Signs: Initial Vital Signs Temp 97.4 F 10/22/18 09:46 Pulse 91 10/22/18 09:46 Resp 20 10/22/18 09:46 BP 128/85 10/22/18 09:46 Pulse Ox 99 10/22/18 09:46 Eyes: Positive: Conjunctiva Clear ENT: Positive: Normal ENT inspection Neck: Positive: Supple Respiratory Exam: Normal Abdominal Exam: Normal Neurological Exam: Normal Skin: Positive: Rashes - He's got diffuse erythematous circular rashes on his chest and legs. They don't have central clearing. Course/Dx - Course Course Of Treatment: My concerns that this is Lyme. I will send off a Lyme titer but will treat with doxycycline. - Diagnoses Provider Diagnosis: Lyme disease Discharge - Sign-Out/Discharge Documenting (check all that apply): Patient Departure All imaging exams completed and their final reports reviewed: No Studies - Discharge Plan Condition: Stable Disposition: HOME Patient Education Materials: Lyme Disease (ED) Referrals: No Primary Care Phys,NOPCP [Primary Care Provider] - [facility] [Outside] - Billing Disposition and Condition Condition: STABLE Disposition: Home
--- NOTE | 2018-10-24 16:09 | UC ---
- Progress Note Progress Note: Lyme screen was positive, continue with the doxycycline and follow up with PCP. Course/Dx - Diagnoses Provider Diagnoses: Lyme disease Discharge - Sign-Out/Discharge Documenting (check all that apply): Post-Discharge Follow Up All imaging exams completed and their final reports reviewed: No Studies - Discharge Plan Condition: Stable Disposition: HOME Prescriptions: DOXYcycline CAP(*) [DOXYcycline 100MG CAP(*)] 100 mg PO BID #42 cap Patient Education Materials: Lyme Disease (ED) Referrals: [facility] [Outside] No Primary Care Phys,NOPCP [Primary Care Provider] - - Billing Disposition and Condition Condition: STABLE Disposition: Home
== END 2018-10-22 11:07 | disposition home or self-care (01) ==
LOC: UCEAST 09:41
DX: A69.20 Lyme disease, unspecified (principal); F41.9 Anxiety disorder, unspecified; Z88.0 Allergy status to penicillin
CPT/HCPCS: 36415; 86617; 86618; 86666; 86753; 99212; G0463

== ENCOUNTER 2020-07-11 08:20 | Inpatient (IN) ==
[2020-07-11 09:23] LABS: ABS Basophils 0.1 10^3/ul (0-0.2); ABS Lymphocytes 0.9 10^3/ul (1.0-4.8); ABS Monocytes 0.5 10^3/ul (0-0.8); ABS Neutrophils 5.5 10^3/ul (1.5-7.7); Eosinophil % 0.4 %; Hematocrit 43 % (42-52); Hemoglobin 14.7 g/dL (14.0-18.0); Lymphocyte % 12.3 %; Mean Corpuscular HGB Conc 34 g/dL (31-36); Mean Corpuscular Hemoglobin 30 pg (27-31); Mean Corpuscular Volume 88 fL (80-94); Mean Platelet Volume 6.5 fL (7.4-10.4); Nucleated Red Blood Cells % 0.1; Platelet Count 294 10^3/uL (150-450); Red Blood Count 4.87 10^6 /uL (4.18-5.48); Red Cell Distribution Width 14 % (10-15); White Blood Count 6.9 10^3/uL (3.5-10.8)
[2020-07-11 09:26] LABS: Urine Appearance Clear; Urine Bilirubin Negative (Negative); Urine Blood 1+ (Negative); Urine Color Yellow; Urine Glucose Negative (Negative); Urine Ketones Negative (Negative); Urine Nitrite Negative (Negative); Urine Protein 1+(30 mg/dL) (Negative); Urine Specific Gravity 1.026 (1.002-1.030); Urine Urobilinogen Negative (Negative)
[2020-07-11 09:32] LABS: ALT 21 U/L (7-52); Albumin 4.3 g/dL (3.2-5.2); Albumin/Globulin Ratio 1.7 (1-3); Alkaline Phosphatase 58 U/L (34-104); Anion Gap 7 mmol/L (2-11); BUN/Creatinine Ratio 24.4 (8-20); Blood Urea Nitrogen 22 mg/dL (6-24); CO2 Carbon Dioxide 27 mmol/L (22-32); Calcium 9.2 mg/dL (8.6-10.3); Chloride 102 mmol/L (101-111); EGFR African American 100.4 (>60); EGFR Non-African American 82.9 (>60); Globulin 2.5 g/dL (2-4); Glucose 115 mg/dL (70-100); Potassium 4.3 mmol/L (3.5-5.0); Sodium 136 mmol/L (135-145); Total Protein 6.8 g/dL (6.4-8.9); Urine Bacteria Absent (Absent); Urine Red Blood Cell 3+(>10/hpf) (Absent); Urine White Blood Cell Trace(0-5/hpf) (Absent)
[2020-07-11 09:41] LABS: Urine Benzodiazepine Screen None Detected (None Detect); Urine Cannabinoids Screen None Detected (None Detect); Urine Opiates Screen None Detected (None Detect)
[2020-07-11 09:51] LABS: Acetaminophen < 15 mcg/mL; Alcohol, S < 10 mg/dL (<10); Salicylate < 2.50 mg/dL (<30)
[2020-07-11 10:05] LABS: TSH Ultra Thyroid Stim Horm 1.46 mcIU/mL (0.34-5.60)
[2020-07-11 10:51] LABS: AST 29 U/L (13-39)
[2020-07-11] MEDS ORDERED: Al Hydrox/Mg Hydrox/Simet LIQ 30 ML UDC PO PRN (13:52)
[2020-07-11] MEDS: Vitamin THERAPEUTIC TAB PO SCH (18:45)
[2020-07-12] MEDS: Vitamin THERAPEUTIC TAB PO SCH (10:16)
[2020-07-13 08:41] LABS: HDL Cholesterol 54.9 mg/dL
[2020-07-13] MEDS: Vitamin THERAPEUTIC TAB PO SCH (12:35)
[2020-07-14] MEDS: Vitamin THERAPEUTIC TAB PO SCH (13:52)
[2020-07-15] MEDS: Vitamin THERAPEUTIC TAB PO SCH (08:03)
[2020-07-16] MEDS: Vitamin THERAPEUTIC TAB PO SCH (07:58)
[2020-07-17 08:10] VITALS: BP 154/88
[2020-07-17] MEDS: Vitamin THERAPEUTIC TAB PO SCH (10:59)
== END 2020-07-17 12:45 | disposition home or self-care (01) | DRG 880 ==
LOC: ED 08:20 → BSU 18:39
PROVIDERS: ADMIT Psychiatry & Neurology Psychiatry; ATTEND Psychiatry & Neurology Psychiatry

== ENCOUNTER 2020-08-30 10:53 | Inpatient (IN) ==
[2020-08-30 11:59] LABS: ABS Basophils 0.1 10^3/ul (0-0.2); ABS Eosinophils 0.1 10^3/ul (0-0.6); ABS Lymphocytes 1.7 10^3/ul (1.0-4.8); ABS Monocytes 0.7 10^3/ul (0-0.8); ABS Neutrophils 6.4 10^3/ul (1.5-7.7); Eosinophil % 1.1 %; Hematocrit 45 % (42-52); Hemoglobin 15.4 g/dL (14.0-18.0); Mean Corpuscular HGB Conc 34 g/dL (31-36); Mean Corpuscular Hemoglobin 30 pg (27-31); Mean Corpuscular Volume 88 fL (80-94); Mean Platelet Volume 6.7 fL (7.4-10.4); Platelet Count 323 10^3/uL (150-450); Red Blood Count 5.19 10^6 /uL (4.18-5.48); Red Cell Distribution Width 15 % (10-15)
[2020-08-30 12:03] LABS: Urine Appearance Clear; Urine Bilirubin Negative (Negative); Urine Blood 2+ (Negative); Urine Color Yellow; Urine Glucose Negative (Negative); Urine Ketones Negative (Negative); Urine Nitrite Negative (Negative); Urine Protein Negative (Negative); Urine Specific Gravity 1.019 (1.002-1.030); Urine Urobilinogen Negative (Negative)
[2020-08-30 12:09] LABS: Urine Bacteria Absent (Absent); Urine Red Blood Cell 3+(>10/hpf) (Absent); Urine Squamous Epithelial Cell Present (Absent); Urine White Blood Cell Absent (Absent)
[2020-08-30 12:24] LABS: ALT 13 U/L (7-52); AST 29 U/L (13-39); Albumin 4.4 g/dL (3.2-5.2); Albumin/Globulin Ratio 1.6 (1-3); Alkaline Phosphatase 59 U/L (35-149); Anion Gap 6 mmol/L (2-11); Blood Urea Nitrogen 18 mg/dL (6-24); CO2 Carbon Dioxide 26 mmol/L (22-32); Calcium 9.2 mg/dL (8.6-10.3); Chloride 102 mmol/L (101-111); EGFR African American 105.8 (>60); EGFR Non-African American 87.4 (>60); Globulin 2.7 g/dL (2-4); Glucose 110 mg/dL (70-100); Potassium 4.2 mmol/L (3.5-5.0); Sodium 134 mmol/L (135-145); Total Protein 7.1 g/dL (6.4-8.9)
[2020-08-30 12:27] LABS: Urine Benzodiazepine Screen None Detected (None Detect); Urine Cannabinoids Screen None Detected (None Detect); Urine Opiates Screen None Detected (None Detect)
[2020-08-30] MEDS ORDERED: Al Hydrox/Mg Hydrox/Simet LIQ 30 ML UDC PO PRN (12:33)
[2020-08-30 12:36] LABS: Acetaminophen < 15 mcg/mL; Alcohol, S < 10 mg/dL (<10); Salicylate < 2.50 mg/dL (<30)
[2020-08-31] MEDS: Vitamin THERAPEUTIC TAB PO SCH (08:48)
[2020-08-31] MEDS ORDERED: COVID-19 VACCINE, MRNA(MODERNA)/PF 100 MCG/0.5 ML IM ONE (15:00)
[2020-09-01] MEDS: Vitamin THERAPEUTIC TAB PO SCH (08:25)
[2020-09-02] MEDS: Vitamin THERAPEUTIC TAB PO SCH (08:18)
[2020-09-03] MEDS: Vitamin THERAPEUTIC TAB PO SCH (08:11)
[2020-09-04] MEDS: Vitamin THERAPEUTIC TAB PO SCH (08:15)
[2020-09-04] MEDS ORDERED: Venlafaxine XR 75 mg PO SCH (09:00)
[2020-09-05] MEDS: Vitamin THERAPEUTIC TAB PO SCH (07:29)
[2020-09-05] MEDS: Venlafaxine XR 75 mg PO SCH (07:29)
[2020-09-06] MEDS: Vitamin THERAPEUTIC TAB PO SCH (08:14)
[2020-09-06] MEDS: Venlafaxine XR 75 mg PO SCH (08:14)
[2020-09-07 07:35] VITALS: BP 113/80
[2020-09-07] MEDS: Venlafaxine XR 75 mg PO SCH (07:37)
[2020-09-07] MEDS: Vitamin THERAPEUTIC TAB PO SCH (07:37)
== END 2020-09-07 13:30 | disposition home or self-care (01) | DRG 880 ==
LOC: ED 10:53 → BSU 12:33 → ED 13:20
PROVIDERS: ADMIT Psychiatry & Neurology Psychiatry; ATTEND Psychiatry & Neurology Psychiatry